=== PATIENT | female | born 1950 | race Caucasian/White ===

== ENCOUNTER → 2017-01-18 | Outpatient (CLI) | payer MEDICARE ==
[2017-01-18 08:53] LABS: CREATININE 0.89 mg/dL (0.55-1.02)
== END ==
LOC: LAB 08:01
PROVIDERS: Surgery
DX: K45.8 Other specified abdominal hernia without obstruction or gangrene (principal)

== ENCOUNTER 2020-12-05 13:26 | Emergency (ER) | payer MEDICARE ==
[~2020-12-05] VITALS: Wt 90.7 kg
[2020-12-05] MEDS ORDERED: AUGMENTIN 875875 MG PO (15:56)
== END 2020-12-05 16:17 | disposition home or self-care (01) ==
LOC: ED 13:26
DX: S51.012A Laceration without foreign body of left elbow, initial encounter (principal); Z98.890 Other specified postprocedural states; Z88.1 Allergy status to other antibiotic agents; Z91.040 Latex allergy status; Z88.8 Allergy status to other drugs, medicaments and biological substances; Z88.2 Allergy status to sulfonamides; Z90.711 Acquired absence of uterus with remaining cervical stump; Z90.49 Acquired absence of other specified parts of digestive tract; V87.8XXA Person injured in other specified noncollision transport accidents involving motor vehicle (traffic), initial encounter; Y93.I9 Activity, other involving external motion; Y92.488 Other paved roadways as the place of occurrence of the external cause; Y99.8 Other external cause status

== ENCOUNTER → 2020-12-09 | Outpatient (CLI) | payer MEDICARE, MEDICAID ==
[~2020-12-09] MED LIST: AUGMENTIN 875875 MG PO
== END ==
LOC: WOUNDCARE 09:59
PROVIDERS: ATTEND Surgery
DX: S51.012A Laceration without foreign body of left elbow, initial encounter (principal); S41.122A Laceration with foreign body of left upper arm, initial encounter; G83.9 Paralytic syndrome, unspecified; Z90.710 Acquired absence of both cervix and uterus; Z98.890 Other specified postprocedural states; W01.0XXA Fall on same level from slipping, tripping and stumbling without subsequent striking against object, initial encounter; Y93.89 Activity, other specified; Y92.89 Other specified places as the place of occurrence of the external cause; Y99.8 Other external cause status

== ENCOUNTER → 2020-12-17 | Outpatient (CLI) | payer MEDICARE, MEDICAID | LOC: WOUNDCARE 00:54 → EDSTATUS 12:11 → WOUNDCARE 12:11 | PROVIDERS: ATTEND Nurse Practitioner Family | DX: T81.89XA Other complications of procedures, not elsewhere classified, initial encounter (principal); S51.012D Laceration without foreign body of left elbow, subsequent encounter; W01.0XXD Fall on same level from slipping, tripping and stumbling without subsequent striking against object, subsequent encounter; Y83.8 Other surgical procedures as the cause of abnormal reaction of the patient, or of later complication, without mention of misadventure at the time of the procedure; Y92.238 Other place in hospital as the place of occurrence of the external cause ==

== ENCOUNTER → 2020-12-24 | Outpatient (CLI) | payer MEDICARE, MEDICAID | LOC: WOUNDCARE 01:56 | PROVIDERS: ATTEND Nurse Practitioner Family | DX: S51.012D Laceration without foreign body of left elbow, subsequent encounter (principal); S41.112D Laceration without foreign body of left upper arm, subsequent encounter; W01.0XXD Fall on same level from slipping, tripping and stumbling without subsequent striking against object, subsequent encounter ==

== ENCOUNTER → 2020-12-31 | Outpatient (CLI) | payer MEDICARE, MEDICAID | LOC: WOUNDCARE 01:06 | PROVIDERS: ATTEND Nurse Practitioner Family | DX: S51.012D Laceration without foreign body of left elbow, subsequent encounter (principal); S41.12 Laceration with foreign body of upper arm; W01.0XXD Fall on same level from slipping, tripping and stumbling without subsequent striking against object, subsequent encounter ==

== ENCOUNTER → 2021-01-07 | Outpatient (CLI) | payer MEDICARE, MEDICAID | LOC: WOUNDCARE 00:56 | PROVIDERS: ATTEND Nurse Practitioner Family | DX: S51.012D Laceration without foreign body of left elbow, subsequent encounter (principal); S41.12 Laceration with foreign body of upper arm; W01.0XXD Fall on same level from slipping, tripping and stumbling without subsequent striking against object, subsequent encounter ==

== ENCOUNTER → 2021-01-21 | Outpatient (CLI) | payer MEDICARE, MEDICAID | LOC: WOUNDCARE 02:23 | PROVIDERS: ATTEND Nurse Practitioner Family | DX: S51.012D Laceration without foreign body of left elbow, subsequent encounter (principal); S41.12 Laceration with foreign body of upper arm; W01.0XXD Fall on same level from slipping, tripping and stumbling without subsequent striking against object, subsequent encounter ==

== ENCOUNTER → 2024-01-24 | Outpatient (CLI) | payer MEDICARE, MEDICAID | END | disposition home or self-care (01) | LOC: LAB 14:54 | PROVIDERS: ATTEND Psychiatry & Neurology Neurology | DX: R41.89 Other symptoms and signs involving cognitive functions and awareness (principal); Z79.899 Other long term (current) drug therapy ==

== ENCOUNTER → 2024-02-20 | Outpatient (CLI) | payer MEDICARE, MEDICAID ==
[2024-02-20 14:35] LABS: BASO % 0.5 % (0.0-1.0); EOS # 0.4 10*3/uL (0.0-0.4); EOS % 4.6 % (1.0-4.0); HEMATOCRIT 41.8 % (37.0-47.0); MEAN CELL VOLUME 93.3 fl (81.0-99.0); MEAN CORPUSCULAR HGB 28.8 pg (27.0-31.0); MEAN CORPUSCULAR HGB CONC 30.9 g/dl (33.0-37.0); MEAN PLATELET VOLUME 9.8 fl (9.6-12.3); MONO # 0.5 10*3/uL (0.1-1.0); MONO % 6.7 % (3.0-9.0); NEUT # 5.4 10*3/uL (2.3-7.9); NEUT % 70.9 % (47.0-73.0); PLATELET COUNT AUTOMATED 288 10*3/uL (130-400); RED BLOOD COUNT 4.48 10*6/uL (4.10-5.10); RED CELL DISTRI WIDTH 12.9 % (0-14.5); WHITE BLOOD COUNT 7.7 10*3/uL (4.8-10.8)
[2024-02-20 15:03] LABS: BUN 7 mg/dl (9-23); CHLORIDE 104 mmol/L (98-107); POTASSIUM 3.2 mmol/L (3.4-5.1)
== END | disposition home or self-care (01) ==
LOC: LAB 14:08
PROVIDERS: ATTEND Urology
DX: Z01.818 Encounter for other preprocedural examination (principal)

== ENCOUNTER → 2024-03-09 | Outpatient (CLI) | payer MEDICARE, MEDICAID ==
[2024-03-09 09:49] LABS: BASO # 0.1 10*3/uL (0.0-0.1); BASO % 0.8 % (0.0-1.0); EOS # 0.5 10*3/uL (0.0-0.4); EOS % 6.6 % (1.0-4.0); HEMATOCRIT 39.5 % (37.0-47.0); MEAN CELL VOLUME 92.1 fl (81.0-99.0); MEAN CORPUSCULAR HGB 28.4 pg (27.0-31.0); MEAN CORPUSCULAR HGB CONC 30.9 g/dl (33.0-37.0); MEAN PLATELET VOLUME 9.8 fl (9.6-12.3); MONO # 0.4 10*3/uL (0.1-1.0); MONO % 5.9 % (3.0-9.0); NEUT # 4.7 10*3/uL (2.3-7.9); NEUT % 63.2 % (47.0-73.0); PLATELET COUNT AUTOMATED 287 10*3/uL (130-400); RED BLOOD COUNT 4.29 10*6/uL (4.10-5.10); RED CELL DISTRI WIDTH 13.5 % (0-14.5); WHITE BLOOD COUNT 7.4 10*3/uL (4.8-10.8)
== END ==
LOC: LAB 09:27
PROVIDERS: ATTEND Orthopaedic Surgery
DX: M54.50 Low back pain, unspecified (principal)

== ENCOUNTER 2024-12-25 10:46 | Inpatient (IN) | payer MEDICARE, MEDICAID ==
[~2024-12-25] VITALS: Ht 165.1 cm; Wt 55.6 kg
[2024-12-25 10:51] VITALS: BP 155/81
[2024-12-25 11:07] LABS: ABG BASE EXCESS 1.1 mmol/L (-2.0-3.0); ABG O2 SATURATION 96.7 % (94.0-98.0); ARTERIAL BLOOD GAS PH 7.457 (7.350-7.450); ARTERIAL BLOOD GAS PO2 84.4 mmHg (83.0-108.0)
[2024-12-25 11:19] LABS: BASO # 0.0 10*3/uL (0.0-0.1); BASO % 0.8 % (0.0-1.0); EOS # 0.1 10*3/uL (0.0-0.4); EOS % 2.7 % (1.0-4.0); MEAN CELL VOLUME 95.7 fl (81.0-99.0); MEAN CORPUSCULAR HGB 29.6 pg (27.0-31.0); MEAN PLATELET VOLUME 9.8 fl (9.6-12.3); MONO # 0.4 10*3/uL (0.1-1.0); MONO % 7.1 % (3.0-9.0); NEUT # 3.4 10*3/uL (2.3-7.9); NEUT % 64.0 % (47.0-73.0); NUCLEATED RED BLOOD CELL 0.0 % (0.0-0.0); NUCLEATED RED BLOOD CELL 0.0 10*3/uL (0.0-0.0); PLATELET COUNT AUTOMATED 233 10*3/uL (130-400); RED CELL DISTRI WIDTH 13.2 % (0-14.5)
[2024-12-25 11:50] LABS: BUN 7 mg/dl (9-23); ETHYL ALCOHOL < 3.0 mg/dl (<3); SGPT/ALT 25 U/L (5-49)
[2024-12-25 12:01] LABS: URINE AMPHETAMINES Negative (1000ng/ml); URINE BARBITURATES Negative (200ng/ml); URINE BENZODIAZEPINES Negative (200ng/ml); URINE CANNABINOIDS (THC) Negative (50ng/ml); URINE COCAINE Negative (300ng/ml); URINE METHADONE Negative (300ng/ml); URINE OPIATES Negative (300ng/ml); URINE PHENCYCLIDINE Negative (25ng/ml)
[2024-12-25] MEDS ORDERED: Lactated Ringer's Solution 1,000 ML IV SCH (12:10)
[2024-12-25 13:13] LABS: BILIRUBIN Negative (Negative); BLOOD Negative (Negative); CLARITY Clear (Clear); COLOR Yellow (Yellow); KETONE Negative (Negative); LEUKO ESTERASE 3+ (Negative); NITRITE Negative (Negative); PH 8.0 (4.5-8.0); SPECIFIC GRAVITY <= 1.005 (1.001-1.030); UROBILINOGEN 0.2 E.U./dl (0.0-1.0)
[2024-12-25 13:26] LABS: BACTERIA 3+; WBC 21-30 wbc/hpf (0-5)
[2024-12-25 14:35] VITALS: BP 146/78
[2024-12-25] MEDS ORDERED: ACETAMINOPHEN 325 MG TAB PO PRN (15:05)
[2024-12-25] MEDS ORDERED: ACETAMINOPHEN 650 MG SUPP R PRN (15:05)
[2024-12-25] MEDS ORDERED: BISACODYL 10 MG SUPP R PRN (15:05)
[2024-12-25] MEDS ORDERED: Ondansetron Hydrochloride 4 MG/2 ML VIAL IV PRN (15:05)
[2024-12-25] MEDS ORDERED: Acetaminophen/Hydrocodone 5 MG/325 MG TABLET PO PRN (15:05)
[2024-12-25] MEDS ORDERED: BISACODYL 5 MG TAB PO PRN (15:05)
[2024-12-25] MEDS ORDERED: DEXTROSE 50% 25 GM/50 ML VIAL IV PRN (15:50)
[2024-12-25] MEDS ORDERED: IOHEXOL 350 MG/ML 100 ML VIAL IV ONE ×2 (16:00→16:23)
[2024-12-25] MEDS ORDERED: SODIUM CHLORIDE 0.9% 100 ML BAG IV ONE (16:00)
[2024-12-25] MEDS ORDERED: SODIUM CHLORIDE 0.9% 100 ML IV ONE (16:23)
[2024-12-25] MEDS ORDERED: INSULIN LISPRO 1 UNIT/0.01 ML SQ SCH (16:30)
[2024-12-25 17:30] VITALS: BP 144/62
[2024-12-25] MEDS ORDERED: FOAM BANDAGE 1 EACH BANDAGE T ONE (18:00)
[2024-12-25] MEDS ORDERED: MYRBETRIQ50 M1 PO (18:33)
[2024-12-25] MEDS ORDERED: BACLOFEN5 MG PO (18:33)
[2024-12-25] MEDS ORDERED: ATORVASTATIN CA80 M1 PO (18:34)
[2024-12-25] MEDS ORDERED: CLONAZEPAM0.5 M2 PO (18:34)
[2024-12-25] MEDS ORDERED: OXYBUTYNIN5 MG PO (18:34)
[2024-12-25] MEDS ORDERED: METHENAMINE HIPP1 G1 PO (18:35)
[2024-12-25] MEDS ORDERED: DONEPEZIL HYDROC5 MG PO (18:35)
[2024-12-25] MEDS ORDERED: AMITRIPTYLINE25 MG PO (18:36)
[2024-12-25] MEDS ORDERED: TRINTELLIX10 MG PO (18:37)
[2024-12-25] MEDS ORDERED: METFORMIN HYDR500 MG PO (18:38)
[2024-12-25] MEDS ORDERED: OMEPRAZOLE MAGN20 MG PO (18:38)
[2024-12-25] MEDS ORDERED: MIDODRINE HCL5 M1 PO (18:40)
[2024-12-25 19:50] VITALS: BP 188/86
[2024-12-25] MEDS ORDERED: hydrALAZINE hydrochloride 20 MG/ML VIAL IV ONE (20:00)
[2024-12-25 20:51] VITALS: BP 150/72
[2024-12-25] MEDS ORDERED: ATORVASTATIN CALCIUM 80 MG TAB PO SCH (22:00)
[2024-12-25] MEDS ORDERED: Amitriptyline Hydrochloride 25 MG TAB PO SCH (22:00)
[2024-12-26] VITALS: BP 106/47
[2024-12-26 04:59] VITALS: BP 134/62
[2024-12-26] MEDS ORDERED: OMEPRAZOLE 20 MG CAP PO SCH (06:00)
[2024-12-26 06:28] LABS: BASO # 0.1 10*3/uL (0.0-0.1); BASO % 0.7 % (0.0-1.0); EOS # 0.2 10*3/uL (0.0-0.4); EOS % 2.0 % (1.0-4.0); MEAN CELL VOLUME 93.3 fl (81.0-99.0); MEAN CORPUSCULAR HGB 30.0 pg (27.0-31.0); MEAN PLATELET VOLUME 10.2 fl (9.6-12.3); MONO # 0.6 10*3/uL (0.1-1.0); MONO % 7.7 % (3.0-9.0); NEUT # 5.1 10*3/uL (2.3-7.9); NEUT % 67.1 % (47.0-73.0); NUCLEATED RED BLOOD CELL 0.0 % (0.0-0.0); NUCLEATED RED BLOOD CELL 0.0 10*3/uL (0.0-0.0); PLATELET COUNT AUTOMATED 301 10*3/uL (130-400); RED CELL DISTRI WIDTH 13.4 % (0-14.5)
[2024-12-26 06:42] LABS: BUN 7 mg/dl (9-23); FREE T4 1.24 ng/dl (0.89-1.76); LDL CHOLESTEROL 68 mg/dL (9-159); SGPT/ALT 28 U/L (5-49)
[2024-12-26] MEDS ORDERED: LORazepam 0.5 MG TAB PO ONE (07:50)
[2024-12-26 08:00] VITALS: BP 152/76
[2024-12-26 08:26] LABS: VITAMIN D, 25-HYDROXY 50.9 ng/mL (30-100)
[2024-12-26] MEDS ORDERED: ASPIRIN ENTERIC COATED 81 MG TAB PO SCH (10:00)
[2024-12-26] MEDS ORDERED: VORTIOXETINE HYDROBROMIDE 10 MG TAB PO SCH (10:00)
[2024-12-26 12:00] VITALS: BP 127/71
[2024-12-26] MEDS ORDERED: ASPIRIN ADULT L81 M2 PO (14:56)
[2024-12-26] MEDS ORDERED: CEFTRIAXONE1 GM IJ (14:56)
[2024-12-26] MEDS ORDERED: VANC1PIG IV (14:56)
[2024-12-27] MEDS ORDERED: BACLOFEN 10 MG TAB PO SCH (17:00)
== END 2024-12-26 15:55 | disposition short-term general hospital (02) | DRG 74 ==
LOC: ED 10:46 → 5E 14:57 → EDHOLD 14:57 → 5E 15:06
PROVIDERS: Emergency Medicine; ADMIT Internal Medicine; ATTEND Internal Medicine
DX: G90.9 Disorder of the autonomic nervous system, unspecified (principal); N39.0 Urinary tract infection, site not specified; E87.20 Acidosis, unspecified; I65.23 Occlusion and stenosis of bilateral carotid arteries; E11.9 Type 2 diabetes mellitus without complications; I10 Essential (primary) hypertension; J44.89 Other specified chronic obstructive pulmonary disease; K21.9 Gastro-esophageal reflux disease without esophagitis; E78.00 Pure hypercholesterolemia, unspecified; M81.0 Age-related osteoporosis without current pathological fracture; Z88.6 Allergy status to analgesic agent; Z88.1 Allergy status to other antibiotic agents; Z88.8 Allergy status to other drugs, medicaments and biological substances; Z91.09 Other allergy status, other than to drugs and biological substances; Z79.899 Other long term (current) drug therapy; Z79.01 Long term (current) use of anticoagulants; Z79.2 Long term (current) use of antibiotics; Z90.49 Acquired absence of other specified parts of digestive tract; Z90.710 Acquired absence of both cervix and uterus; Z82.49 Family history of ischemic heart disease and other diseases of the circulatory system